=== PATIENT | male | born 1975 | race American Indian/Alaskan Native ===

== ENCOUNTER 2020-06-15 05:42 | Emergency (ER) | payer SELFPAY ==
[2020-06-15] MEDS ORDERED: TERBUTALINE 1 MG/1 ML INJ SUB-Q ONE (06:20)
--- NOTE | 2020-06-15 06:30 | Emergency Department Report ---
ED General Adult HPI - General Chief complaint: Extremity Injury, Lower Stated complaint: ERECTION X10HRS Time Seen by Provider: 06/15/20 06:14 Source: patient Mode of arrival: Ambulatory Limitations: No Limitations - History of Present Illness Initial comments: This is a 44-year-old man who presented for evaluation of an erection that persisted for 10 hours prior to his arrival. He denies ED jobs. He denies sickle cell disease. States he has a history of diabetes and hypertension. He is stating he lost more 100 pounds when he had these medical problems. He has no primary care physician here in [place]. He also has a history of atrial fibrillation but states he was never placed on blood thinners only diltiazem. His previous episode of priapism was treated in [place] via a drainage procedure. However, he states the problem is spontaneously improving and is indicating he is about ready for discharge. He is not complaining of pain. -: Gradual, hour(s) Location: genitals Radiation: non-radiation Consistency: now resolved (No improvement) Improves with: none Worsens with: none Associated Symptoms: denies other symptoms Treatments Prior to Arrival: none - Related Data Allergies Allergy/AdvReac Type Severity Reaction Status Date / Time No Known Allergies Allergy Unverified 06/15/20 05:49 ED Review of Systems ROS: Stated complaint: ERECTION X10HRS Other details as noted in HPI Comment: All other systems reviewed and negative ED Past Medical Hx - Past Medical History Previous Medical History?: Yes Hx Hypertension: Yes Hx Diabetes: Yes Additional medical history: A-Fib - Social History Smoking Status: Never Smoker ED Physical Exam - General Limitations: No Limitations General appearance: alert, in no apparent distress - Head Head exam: Present: atraumatic, normocephalic - Eye Eye exam: Present: normal appearance. Absent: scleral icterus - ENT ENT exam: Present: mucous membranes moist - Neck Neck exam: Present: normal inspection - Respiratory Respiratory exam: Present: normal lung sounds bilaterally. Absent: respiratory distress - Cardiovascular Cardiovascular Exam: Present: regular rate, normal rhythm. Absent: systolic murmur, diastolic murmur, rubs, gallop - GI/Abdominal GI/Abdominal exam: Present: soft, normal bowel sounds. Absent: distended, tenderness, guarding - Rectal Rectal exam: Present: deferred - exam: Present: circumcision, other (Partial erection noted). Absent: testicular tenderness, urethral discharge, scrotal swelling - Extremities Exam Extremities exam: Present: normal inspection - Back Exam Back exam: Present: normal inspection - Neurological Exam Neurological exam: Present: alert, oriented X3, CN II-XII intact. Absent: motor sensory deficit - Psychiatric Psychiatric exam: Present: normal affect, normal mood - Skin Skin exam: Present: warm, dry, intact, normal color. Absent: rash ED Course Vital Signs 06/15/20 06/15/20 05:51 06:36 Temperature 98.8 F 98.2 F Pulse Rate 79 81 Respiratory 16 16 Rate Blood Pressure 151/100 Blood Pressure 123/91 [Left] O2 Sat by Pulse 98 100 Oximetry - Reevaluation(s) Reevaluation #1: Nurse informs me that patient is reticent to accept treatment with terbutaline. The reason for the drug has been explained. However, apparently he is trying to study this on his cell phone. 06/15/20 06:34 Reevaluation #2: Blood pressure improved. Glucose was 90. Patient declines further treatment. He is mentally competent to do so and will be released. 06/15/20 06:39 Critical care attestation.: If time is entered above; I have spent that time in minutes in the direct care of this critically ill patient, excluding procedure time. ED Disposition Clinical Impression: Priapism Disposition: DC-01 TO HOME OR SELFCARE Is pt being admited?: No Does the pt Need Aspirin: No Condition: Stable Additional Instructions: Return as needed problem worsens. Further care was recommended that you declined. Follow-up with urology and the local primary care clinic. Referrals: PRIMARY CAREMD [Primary Care Provider] - 3-5 Days [facility] [Provider Group] - 3-5 Days [facility] [Provider Group] - [facility] Time of Disposition: 06:40
[2020-06-15 06:37] VITALS: BP 123/91
== END 2020-06-15 06:52 | disposition home or self-care (01) ==
LOC: ED 05:42
DX: N48.30 Priapism, unspecified (principal); I10 Essential (primary) hypertension; E11.9 Type 2 diabetes mellitus without complications; Z79.899 Other long term (current) drug therapy
CPT/HCPCS: 82962; 99282; J3105

== ENCOUNTER 2021-02-26 07:46 | Emergency (ER) | payer MEDICARE, OTHER ==
[2021-02-26] MEDS ORDERED: TERBUTALINE 1 MG/1 ML INJ SUB-Q ONE (09:07)
--- NOTE | 2021-02-26 09:12 | Emergency Department Report ---
ED Male HPI - General Chief complaint: Urogenital-Male Stated complaint: ERECTION Time Seen by Provider: 02/26/21 09:07 Source: patient Mode of arrival: Ambulatory Limitations: No Limitations - History of Present Illness Initial comments: Patient presents with priapism. He has had an erection for at least 8 hours. Etiology for this is not known. There is no history of trauma. He does admits that he takes Cialis. He took that Friday. However his erection at that time went away. Patient states that he has had this before. He is scheduled to see a urologist when he returns home to [place]. He has had to have his penis drained before due to this. He does not have sickle disease. Again, etiology for his priapism historically has not been known. Regardless, today he came in due to penile pain. The pain is constant and aching. It is worse with any kind of palpation. There is no history of numbness or tingling to the legs. He has no saddle anesthesia. There is no recent back injury. He denies IV drug abuse. - Related Data Home Medications Medication Instructions Recorded Confirmed Last Taken No Known Home Medications [No 02/26/21 02/26/21 Unknown Reported Home Medications] Allergies Allergy/AdvReac Type Severity Reaction Status Date / Time No Known Allergies Allergy Verified 02/26/21 07:51 ED Review of Systems ROS: Stated complaint: ERECTION Other details as noted in HPI Comment: All other systems reviewed and negative Constitutional: denies: fever Eyes: denies: vision change ENT: denies: throat pain Respiratory: denies: cough Cardiovascular: denies: chest pain Endocrine: denies: unexplained weight loss Gastrointestinal: denies: abdominal pain Genitourinary: as per HPI Musculoskeletal: denies: back pain Skin: denies: rash Neurological: denies: headache Hematological/Lymphatic: denies: easy bruising ED Past Medical Hx - Past Medical History Hx Hypertension: Yes Hx Diabetes: Yes Additional medical history: A-Fib - Surgical History Additional Surgical History: AORTIC DISSECTION - Family History Family history: hypertension - Social History Smoking Status: Never Smoker - Medications Home Medications: Home Medications Medication Instructions Recorded Confirmed Last Taken Type No Known Home Medications [No 02/26/21 02/26/21 Unknown History Reported Home Medications] ED Physical Exam - General Limitations: No Limitations, Other (Pulse ox noted and normal) General appearance: alert, in distress (Uncomfortable) - Head Head exam: Present: atraumatic, normocephalic - Eye Eye exam: Present: normal appearance, EOMI. Absent: scleral icterus - ENT ENT exam: Present: normal exam, normal orophraynx - Neck Neck exam: Present: normal inspection. Absent: meningismus - Respiratory Respiratory exam: Present: normal lung sounds bilaterally. Absent: respiratory distress - Cardiovascular Cardiovascular Exam: Present: regular rate, normal rhythm - GI/Abdominal GI/Abdominal exam: Present: soft. Absent: tenderness - exam: Present: other (Priapism is noted). Absent: scrotal swelling - Extremities Exam Extremities exam: Present: normal capillary refill - Back Exam Back exam: Absent: CVA tenderness (R), CVA tenderness (L) - Neurological Exam Neurological exam: Present: alert, oriented X3, CN II-XII intact, normal gait. Absent: motor sensory deficit - Psychiatric Psychiatric exam: Present: normal affect, normal mood - Skin Skin exam: Present: warm, dry ED Course Vital Signs 02/26/21 02/26/21 07:52 09:34 Temperature 98.6 F 98.0 F Pulse Rate 72 77 Respiratory 20 12 Rate Blood Pressure 159/105 Blood Pressure 121/75 [Right] O2 Sat by Pulse 99 99 Oximetry - Reevaluation(s) Reevaluation #1: 02/26/21 09:10 Subcu terbutaline was ordered. I did discuss this versus drainage with the patient. Reevaluation #2: 02/26/21 09:53 There has been no response to terbutaline. Analgesics have been ordered and will plan on aspiration. Reevaluation #3: 02/26/21 12:54 Patient underwent drainage of the corpora. Priapism resolved and he was discharged. - Penile Procedure Consent Obtained: verbal consent Time Out Performed: No Indication: priapism management Procedural Sedation: No Sedation/Analgesia: opioids Local Anesthesia Used: Lidocaine 1% without EPI Amount of Anesthesia Used (mls): 3 (ml) Priapism Management: aspiration (70 mL each side) Complications: none Patient Tolerated Procedure: well ED Medical Decision Making - Medical Decision Making Patient presents with priapism. Etiology for this is not known. He has been using Cialis but has not used any in 48 hours. He then developed priapism. Whether this is a late manifestation of that or some other sources not known. He reports not having sickle disease. He states that he does have a urologist with whom to follow because of the priapism. He was referred for outpatient follow-up. There was no trauma reported. He has no back injury or other neurologic symptoms suggestive of cord injury. Critical Care Time: No Critical care attestation.: If time is entered above; I have spent that time in minutes in the direct care o f this critically ill patient, excluding procedure time. ED Disposition Clinical Impression: Priapism Disposition: 01 HOME / SELF CARE / HOMELESS Is pt being admited?: No Condition: Stable Instructions: Priapism Additional Instructions: Use the Marcio wrap at home. Apply ice. See your urologist for follow-up. Avoid Cialis. Referrals: PRIMARY CARE, [Primary Care Provider] - 3-5 Days
[2021-02-26] MEDS ORDERED: LIDOCAINE (1%) 10 MG/1 ML VIAL 20 ML MDV INFILTRATI ONE (09:52)
[2021-02-26] MEDS ORDERED: oxyCODONE /ACETAMINOPHEN 5-325MG TAB PO ONE (09:52)
[2021-02-26] MEDS ORDERED: PHENYLEPHRINE 1 MG, SODIUM CHLORIDE P/F VIAL 10 ML 9.9 ML IJ**NOT IV ONE (12:17)
[2021-02-26 13:15] VITALS: BP 162/100
== END 2021-02-26 13:15 | disposition home or self-care (01) ==
LOC: ED 07:46
DX: N48.30 Priapism, unspecified (principal); I10 Essential (primary) hypertension; E11.9 Type 2 diabetes mellitus without complications
CPT/HCPCS: 54220; 99282; J2370; J3105; J3490

== ENCOUNTER 2021-04-01 16:57 | Emergency (ER) | payer OTHER ==
[2021-04-01] MEDS ORDERED: HYDROmorphone 1 MG/1 ML INJ IM ONE (17:36)
[2021-04-01] MEDS ORDERED: PHENYLEPHRINE 1 MG, SODIUM CHLORIDE P/F VIAL 10 ML 9.9 ML IJ**NOT IV ONE (18:15)
--- NOTE | 2021-04-01 20:53 | Emergency Department Report ---
ED Male HPI - General Chief complaint: Urogenital-Male Stated complaint: ERECTION OVER 8 HRS Time Seen by Provider: 04/01/21 17:23 Source: patient Mode of arrival: Ambulatory Limitations: No Limitations - History of Present Illness MD Complaint: other (priapism ) -: Gradual, days(s) Location: penis - Related Data Home Medications Medication Instructions Recorded Confirmed Last Taken No Known Home Medications [No 02/26/21 02/26/21 Unknown Reported Home Medications] Allergies Allergy/AdvReac Type Severity Reaction Status Date / Time No Known Allergies Allergy Verified 02/26/21 07:51 ED Review of Systems ROS: Stated complaint: ERECTION OVER 8 HRS Other details as noted in HPI Constitutional: denies: chills, fever Eyes: denies: eye pain, eye discharge, vision change ENT: denies: ear pain, throat pain Respiratory: denies: cough, shortness of breath, wheezing Cardiovascular: denies: chest pain, palpitations Endocrine: no symptoms reported Gastrointestinal: denies: abdominal pain, nausea, diarrhea Genitourinary: denies: urgency, dysuria Musculoskeletal: denies: back pain, joint swelling, arthralgia Skin: denies: rash, lesions Neurological: denies: headache, weakness, paresthesias Psychiatric: denies: anxiety, depression Hematological/Lymphatic: denies: easy bleeding, easy bruising ED Past Medical Hx - Past Medical History Hx Hypertension: Yes Hx Diabetes: Yes Additional medical history: A-Fib - Surgical History Additional Surgical History: AORTIC DISSECTION - Social History Smoking Status: Never Smoker - Medications Home Medications: Home Medications Medication Instructions Recorded Confirmed Last Taken Type No Known Home Medications [No 02/26/21 02/26/21 Unknown History Reported Home Medications] ED Physical Exam - General Limitations: No Limitations General appearance: alert, in no apparent distress - Head Head exam: Present: atraumatic, normocephalic - Eye Eye exam: Present: normal appearance - ENT ENT exam: Present: mucous membranes moist - Neck Neck exam: Present: normal inspection - Respiratory Respiratory exam: Present: normal lung sounds bilaterally. Absent: respiratory distress - Cardiovascular Cardiovascular Exam: Present: regular rate, normal rhythm. Absent: systolic murmur, diastolic murmur, rubs, gallop - GI/Abdominal GI/Abdominal exam: Present: soft, normal bowel sounds - Rectal Rectal exam: Present: deferred - Expanded Exam Expanded Male exam: Present: priapism - Extremities Exam Extremities exam: Present: normal inspection - Back Exam Back exam: Present: normal inspection - Neurological Exam Neurological exam: Present: alert, oriented X3 - Psychiatric Psychiatric exam: Present: normal affect, normal mood - Skin Skin exam: Present: warm, dry, intact, normal color. Absent: rash ED Course - Reevaluation(s) Reevaluation #1: 04/01/21 20:52 phenyl ephrine given 0.5 mg twice IC , resolved Critical care attestation.: If time is entered above; I have spent that time in minutes in the direct care of this critically ill patient, excluding procedure time. ED Disposition Clinical Impression: Priapism Disposition: HOME / SELF CARE / HOMELESS Is pt being admited?: No Does the pt Need Aspirin: No Condition: Stable Referrals: PRIMARY CARE, [Primary Care Provider] - 3-5 Days
== END 2021-04-01 23:16 | disposition left against medical advice (07) ==
LOC: ED 16:57
DX: N48.30 Priapism, unspecified (principal); I10 Essential (primary) hypertension; E11.8 Type 2 diabetes mellitus with unspecified complications
CPT/HCPCS: 54220; 96372; 99281; J1170; J2370; 96374; 99282

== ENCOUNTER 2021-08-30 11:34 | Emergency (ER) | payer OTHER ==
[2021-08-30] MEDS ORDERED: TERBUTALINE 1 MG/1 ML INJ SUB-Q ONE ×2 (12:11)
[2021-08-30] MEDS ORDERED: MORPHINE 4 MG/1 ML INJ IV ONE ×2 (12:12→13:27)
[2021-08-30] MEDS ORDERED: PHENYLEPHRINE 1 MG, SODIUM CHLORIDE P/F VIAL 10 ML 9.9 ML IJ**NOT IV ONE (12:18)
--- NOTE | 2021-08-30 12:40 | Emergency Department Report ---
ED Male HPI - General Chief complaint: Urogenital-Male Stated complaint: PRIAPISM Source: patient Mode of arrival: Ambulatory Limitations: No Limitations - History of Present Illness Initial comments: This is a 45-year-old male with history of recurrent priapism. Patient reports that his he woke up around 8 AM with priapism. He states he is unsure as to when his penis became hard. He notes he recently had a procedure to relieve priapism in [place] approximately week ago and states his penis has been sore secondary to that. - Related Data Home Medications Medication Instructions Recorded Confirmed Last Taken AtorvaSTATin 80 mg PO QDAY 08/30/21 08/30/21 1 Day Ago ~08/29/21 amLODIPine 10 mg PO QDAY 08/30/21 08/30/21 1 Day Ago ~08/29/21 carvediloL 50 mg PO BID 08/30/21 08/30/21 1 Day Ago ~08/29/21 metFORMIN 100 mg PO QDAY 08/30/21 08/30/21 1 Day Ago ~08/29/21 Allergies Allergy/AdvReac Type Severity Reaction Status Date / Time No Known Allergies Allergy Verified 08/30/21 12:12 ED Review of Systems ROS: Stated complaint: PRIAPISM Other details as noted in HPI Constitutional: denies: chills, fever Eyes: denies: eye pain, eye discharge, vision change ENT: denies: ear pain, throat pain Respiratory: denies: cough, shortness of breath, wheezing Cardiovascular: denies: chest pain, palpitations Endocrine: no symptoms reported Gastrointestinal: denies: abdominal pain, nausea, diarrhea Genitourinary: as per HPI. denies: urgency, dysuria Musculoskeletal: denies: back pain, joint swelling, arthralgia Skin: denies: rash, lesions Neurological: denies: headache, weakness, paresthesias Psychiatric: denies: anxiety, depression Hematological/Lymphatic: denies: easy bleeding, easy bruising ED Past Medical Hx - Past Medical History Hx Hypertension: Yes Hx Diabetes: Yes Additional medical history: A-Fib - Surgical History Additional Surgical History: AORTIC DISSECTION - Social History Smoking Status: Never Smoker - Medications Home Medications: Home Medications Medication Instructions Recorded Confirmed Last Taken Type AtorvaSTATin 80 mg PO QDAY 08/30/21 08/30/21 1 Day Ago History ~08/29/21 amLODIPine 10 mg PO QDAY 08/30/21 08/30/21 1 Day Ago History ~08/29/21 carvediloL 50 mg PO BID 08/30/21 08/30/21 1 Day Ago History ~08/29/21 metFORMIN 100 mg PO QDAY 08/30/21 08/30/21 1 Day Ago History ~08/29/21 ED Physical Exam - General Limitations: No Limitations General appearance: alert, in distress - Head Head exam: Present: atraumatic, normocephalic - Eye Eye exam: Present: normal appearance - ENT ENT exam: Present: mucous membranes moist - Neck Neck exam: Present: normal inspection - Respiratory Respiratory exam: Present: normal lung sounds bilaterally. Absent: respiratory distress - Cardiovascular Cardiovascular Exam: Present: regular rate, normal rhythm. Absent: systolic murmur, diastolic murmur, rubs, gallop - GI/Abdominal GI/Abdominal exam: Present: soft, normal bowel sounds - Rectal Rectal exam: Present: deferred - exam: Present: other (Priapism noted) - Extremities Exam Extremities exam: Present: normal inspection - Back Exam Back exam: Present: normal inspection - Neurological Exam Neurological exam: Present: alert, oriented X3 - Psychiatric Psychiatric exam: Present: normal affect, normal mood - Skin Skin exam: Present: warm, dry, intact, normal color. Absent: rash ED Course Vital Signs 08/30/21 08/30/21 08/30/21 11:51 12:22 12:30 Temperature 98.4 F Pulse Rate 69 Respiratory 16 Rate Blood Pressure 144/91 Blood Pressure 160/104 [Left] O2 Sat by Pulse 95 100 100 Oximetry 08/30/21 08/30/21 08/30/21 12:31 12:46 13:00 Temperature Pulse Rate Respiratory 16 Rate Blood Pressure 144/91 147/93 Blood Pressure [Left] O2 Sat by Pulse 99 99 Oximetry 08/30/21 08/30/21 08/30/21 13:16 13:30 13:46 Temperature Pulse Rate Respiratory Rate Blood Pressure 150/98 155/91 155/91 Blood Pressure [Left] O2 Sat by Pulse 99 100 100 Oximetry 08/30/21 08/30/21 08/30/21 14:00 14:02 14:15 Temperature Pulse Rate Respiratory 16 Rate Blood Pressure 151/92 165/108 Blood Pressure [Left] O2 Sat by Pulse 100 100 Oximetry 08/30/21 08/30/21 08/30/21 14:30 14:46 15:00 Temperature Pulse Rate Respiratory Rate Blood Pressure 151/69 165/108 127/86 Blood Pressure [Left] O2 Sat by Pulse 100 98 100 Oximetry 08/30/21 08/30/21 08/30/21 15:16 15:30 15:46 Temperature Pulse Rate Respiratory Rate Blood Pressure 152/91 151/85 151/85 Blood Pressure [Left] O2 Sat by Pulse 99 98 99 Oximetry 08/30/21 08/30/21 08/30/21 16:00 16:16 16:30 Temperature Pulse Rate Respiratory Rate Blood Pressure 153/86 156/93 154/94 Blood Pressure [Left] O2 Sat by Pulse 98 98 99 Oximetry 08/30/21 08/30/21 08/30/21 16:46 17:00 17:12 Temperature 98.4 F Pulse Rate 69 Respiratory 16 Rate Blood Pressure 154/94 146/93 Blood Pressure 155/91 [Left] O2 Sat by Pulse 98 97 100 Oximetry - Reevaluation(s) Reevaluation #1: 08/30/21 13:26 There is mild improvement after terbutaline administration we will proceed with phenylephrine injection 08/30/21 16:49 Patient has been detumesced and we have had a consultation out for urology however we do not have urology on-call here so we did have to contact [facility]. We have not heard back from [facility] so we are calling the back now as well as placing calls out to [facility] if needed. - Consultations Consultation #1: 08/30/21 17:[address] Mejia. I discussed patient case. She did state a given patient his penis is no longer erect it is safe for patient to be discharged and patient should follow-up. If he develops any worsening symptoms he can take Sudafed as needed and return to the ED. 08/30/21 20:49 ED Medical Decision Making - Lab Data Result diagrams: 08/30/21 13:01 08/30/21 13:01 - Medical Decision Making This is a 45-year-old male presented to the emergency department with complaint of priapism. Patient has had previous and had a recent drainage approximately a week ago in [place]. Patient states that his penis has been erect for approximately 4 hours as it has been erect since he woke up at 8 AM. Plan for pain control, terbutaline, likely phenylephrine injection into the corpus cavernosum as well as irrigation and drainage of his penis. Critical care attestation.: If time is entered above; I have spent that time in minutes in the direct care of this critically ill patient, excluding procedure time. ED Disposition Clinical Impression: Priapism Disposition: 01 HOME / SELF CARE / HOMELESS Is pt being admited?: No Does the pt Need Aspirin: No Condition: Stable Additional Instructions: If you need to follow-up with urology at [facility] the number is [phone]. Otherwise please follow-up with your urologist in [place] and you can follow- up with either return to the emergency department if symptoms worsen. Referrals: PRIMARY MD [facility] [Primary Care Provider] - 3-5 Days ORALIA HAWLEY MD [Referring] - 3-5 Days Time of Disposition: 17:03
[2021-08-30] MEDS ORDERED: LIDOCAINE (1%) 10 MG/1 ML VIAL 20 ML MDV INFILTRATI ONE (12:44)
[2021-08-30 13:44] LABS: Basophils # (Auto) 0.1 K/mm3 (0.0-0.1); Basophils % (Auto) 1.1 % (0.0-1.8); Eosinophils # (Auto) 0.1 K/mm3 (0.0-0.4); Eosinophils % (Auto) 1.3 % (0.0-4.3); Hematocrit 38.1 % (35.5-45.6); Hemoglobin 12.8 gm/dl (11.8-15.2); Lymphocytes # (Auto) 1.4 K/mm3 (1.2-5.4); Lymphocytes % (Auto) 23.6 % (13.4-35.0); Mean Corpuscular HGB Conc 34 % (32-34); Mean Corpuscular Volume 88 fl (84-94); Monocytes # (Auto) 0.6 K/mm3 (0.0-0.8); Monocytes % (Auto) 9.5 % (0.0-7.3); Platelet Count 254 K/mm3 (140-440); Red Blood Count 4.35 M/mm3 (3.65-5.03); Red Cell Distribution Width 18.8 % (13.2-15.2)
[2021-08-30 13:56] LABS: INR 0.92 (0.87-1.13)
[2021-08-30 14:16] LABS: Alanine Aminotransferase 10 units/L (7-56); Albumin 3.8 g/dL (3.9-5); BUN/Creatinine Ratio 15; Blood Urea Nitrogen 16 mg/dL (9-20); Calcium 9.2 mg/dL (8.4-10.2); Hemolysis Index 5
[2021-08-30 17:13] VITALS: BP 155/91
[2021-08-30 17:22] LABS: Bilirubin,Urine Negative (Negative); Color,Urine Yellow (Yellow)
[2021-08-30 17:23] LABS: Blood,Urine Negative (Negative)
[2021-08-30 17:32] LABS: Mucus,Urine 2+ /HPF
== END 2021-08-30 19:04 | disposition home or self-care (01) ==
LOC: ED 11:34
DX: N48.30 Priapism, unspecified (principal); I10 Essential (primary) hypertension; E11.9 Type 2 diabetes mellitus without complications; Z79.899 Other long term (current) drug therapy
CPT/HCPCS: 36415; 80053; 81001; 85025; 85610; 96372; 96374; 96376; 99283; J2270; J2370; J3105